=== PATIENT | female | born 1995 | race African-American/Black ===

== ENCOUNTER 2024-03-04 20:15 | Inpatient (IN) | payer OTHER ==
[2024-03-04 20:40] VITALS: BMI 48.0
[2024-03-07 07:25] VITALS: BP 137/96; TEMP 97.6
== END 2024-03-07 16:00 | disposition home or self-care (01) | DRG 788 ==
LOC: CSHLD/OP 20:15 → CSHLD 20:58 → CSHPP 03-05 00:30
PROVIDERS: ADMIT Family Medicine; ATTEND Family Medicine
PROC: 10D00Z1 Extraction of Products of Conception, Low, Open Approach (ICD-10-PCS; principal; 2024-03-04)
DX: O34.211 Maternal care for low transverse scar from previous cesarean delivery (principal); O77.0 Labor and delivery complicated by meconium in amniotic fluid; Z3A.38 38 weeks gestation of pregnancy; Z37.0 Single live birth; Z79.899 Other long term (current) drug therapy
CPT/HCPCS: 51702; 82805; 85027; 88307; 99285; C1889; J1100; J1885; J2274; J2405; J2590; J3490; J7120